=== PATIENT | male | born 1995 | race Caucasian/White ===

== ENCOUNTER 2020-12-09 23:27 | Emergency (ER) | payer MEDICAID ==
[~2020-12-09] VITALS: Ht 160 cm; Wt 60.3 kg
[2020-12-09 23:40] VITALS: BP 130/80
--- NOTE | 2020-12-09 23:48 | NUR ---
PT W/C ASSISTED TO ER 2
[2020-12-10 00:07] LABS: BASOPHILS % (AUTO) 0.4 % (0.0-2.0); EOSINOPHILS # (AUTO) 0.1 K/uL (0-0.4); EOSINOPHILS % (AUTO) 1.2 % (0.0-4.0); HEMATOCRIT 49.3 % (36-52); HEMOGLOBIN 16.9 g/dL (12.0-18.0); LYMPHOCYTES # (AUTO) 2.2 K/uL (2.0-11.5); LYMPHOCYTES % (AUTO) 29.2 % (20.5-51.1); MEAN CORPUSCULAR HEMOGLOBIN 30 pg (27-31); MEAN CORPUSCULAR HGB CONC 34 g/dL (33-37); MEAN CORPUSCULAR VOLUME 87.5 fL (80-94); MONOCYTES # (AUTO) 0.5 K/uL (0.8-1.0); MONOCYTES % (AUTO) 6.2 % (1.7-9.3); NEUTROPHILS # (AUTO) 4.8 K/uL (1.8-7.7); PLATELET COUNT (AUTO) 226 K/uL (140-450); RED BLOOD CELL COUNT(AUTO) 5.63 MIL/uL (4.20-6.10); RED CELL DISTRIBUTION WIDTH 13.5 % (11.6-13.7); WHITE BLOOD COUNT (AUTO) 7.6 K/uL (4.8-10.8)
--- NOTE | 2020-12-10 00:07 | NUR ---
Patient laying in bed, HOB elevated, bed locked in lowest position, x1 side rail up. breathing even and unlabored, nad noted, will continue to monitor. at bedside.
[2020-12-10 00:24] LABS: ANION GAP 10.2 (8-16); CARBON DIOXIDE 29.1 mmol/L (21-32); CREATININE 0.9 mg/dL (0.6-1.3); POTASSIUM 3.3 mmol/L (3.5-5.1); TOTAL BILIRUBIN 1.8 mg/dL (0.0-1.0)
[2020-12-10] MEDS ORDERED: NAPR-54 PO (01:30)
[2020-12-10 01:33] VITALS: BP 118/54
--- NOTE | 2020-12-10 01:33 | NUR ---
Patient discharged with v/s stable BY MARCIAL NEELY. Written and verbal after care instructions given and explained BY MARCIAL NEELY. Patient alert, oriented and verbalized understanding of instructions. Ambulatory with steady gait. All questions addressed prior to discharge BY MARCIAL NEELY. ID band removed. Patient advised to follow up with PMD. Rx of NAPROXEN given. Patient educated on indication of medication including possible reaction and side effects BY MARCIAL NEELY. Opportunity to ask questions provided and answered BY MARCIAL NEELY.
== END 2020-12-10 01:33 | disposition home or self-care (01) ==
LOC: MED 23:27
DX: G43.409 Hemiplegic migraine, not intractable, without status migrainosus (principal); Z79.899 Other long term (current) drug therapy
CPT/HCPCS: 36415; 70450; 80053; 83605; 85025; 99284

== ENCOUNTER 2022-05-29 16:48 | Emergency (ER) | payer MEDICAID ==
[~2022-05-29] VITALS: Ht 162.6 cm; Wt 59.9 kg
[~2022-05-29 16:48] MED LIST: NAPR-54 PO
[2022-05-29 17:01] VITALS: BP 133/82
[2022-05-29] MEDS ORDERED: KETOROLAC 30 MG/ML VIAL IM ONE (17:35)
[2022-05-29] MEDS ORDERED: diazePAM 5 MG TAB PO ONE (17:35)
[2022-05-29] MEDS ORDERED: ATA25 PO (19:01)
== END 2022-05-29 19:15 | disposition home or self-care (01) ==
LOC: MED 16:48
DX: F41.9 Anxiety disorder, unspecified (principal); R07.89 Other chest pain; Z79.899 Other long term (current) drug therapy
CPT/HCPCS: 71045; 93005; 96372; 99283; J1885

== ENCOUNTER 2024-01-03 21:28 | Emergency (ER) | payer MEDICAID ==
[~2024-01-03] VITALS: Ht 165.1 cm; Wt 65.8 kg
[~2024-01-03 21:28] MED LIST changes: +ATA25 PO; +BEN10 PO; +CALC-870 PO; +NAPR-337 PO; -NAPR-54 PO; +ONDA-189 PO
[2024-01-03 21:40] VITALS: BP 121/74; PULSE 61; RESP 20; TEMP 98.2; O2SAT 100
[2024-01-04 01:10] VITALS: BP 122/75; PULSE 64; RESP 19; TEMP 98.2; O2SAT 100
[2024-01-04] MEDS: LORazepam 2 MG/ML VIAL IM ONE (01:46)
== END 2024-01-04 01:46 | disposition home or self-care (01) ==
LOC: MED 21:28
DX: F41.9 Anxiety disorder, unspecified (principal); Z79.1 Long term (current) use of non-steroidal anti-inflammatories (NSAID); Z79.899 Other long term (current) drug therapy
CPT/HCPCS: 96372; 99283; J2060